=== PATIENT | male | born 1955 | race Caucasian/White ===

== ENCOUNTER 2019-06-15 08:24 | Emergency (ER) | payer OTHER ==
[~2019-06-15] VITALS: Ht 193 cm; Wt 126.8 kg
[2019-06-15 08:49] LABS: BASO % 1 % (0-3); EOS % 1 % (0-3); HEMATOCRIT 49.2 % (39.0-53.0); HEMOGLOBIN 16.8 g/dL (13.0-17.5); LYMPH # 1.8 x10^3/uL (1.0-4.8); LYMPH % 27 % (24-48); MEAN CORPUSCULAR HEMOGLOBIN 31 pg (25-35); MEAN CORPUSCULAR HGB CONC 34 g/dL (31-37); MEAN CORPUSCULAR VOLUME 91 fL (79-100); MONO # 0.6 x10^3/uL (0.0-1.1); MONO % 9 % (0-9); NEUT # 4.2 x10^3uL (1.8-7.7); NEUT % 63 % (31-73); PLATELET COUNT 157 x10^3/uL (140-400); RED BLOOD COUNT 5.44 x10^6/uL (4.30-5.70); WHITE BLOOD COUNT 6.6 x10^3/uL (4.0-11.0)
[2019-06-15] MEDS ORDERED: FLEC100T PO (08:55)
[2019-06-15] MEDS ORDERED: METO-247 PO ×2 (08:55→11:00)
[2019-06-15] MEDS ORDERED: VITA1TAB31 PO (08:55)
[2019-06-15 08:58] LABS: CALCIUM 8.8 mg/dL (8.5-10.1); GFR 75.7; POTASSIUM 4.2 mmol/L (3.5-5.1)
[2019-06-15] MEDS ORDERED: dilTIAZem VIAL 125 MG in IV NORMAL SALINE 100ML 100 ML IV ONE (09:00)
[2019-06-15] MEDS ORDERED: IV NORMAL SALINE 1,000ML 1,000 ML IV ONE (09:00)
--- NOTE | 2019-06-15 09:04 | RAD ---
Single view chest dated 06/15/2019: No comparison available. Clinical Indication: Shortness of breath. Findings: Single upright portable exam of the chest was performed. Heart size and mediastinal contours are within normal limits given technique. The lungs are clear without evidence of focal consolidation. Vascular interstitium is within normal limits. Impression:: No acute radiographic abnormality. Electronically signed by: Deuce Bar MD (06/15/2019 9:01 AM) [facility] [place]
[2019-06-15 09:10] LABS: ALBUMIN/GLOBULIN RATIO 1.3 (1.0-1.7); TOTAL BILIRUBIN 0.4 mg/dL (0.2-1.0); TOTAL PROTEIN 7.1 g/dL (6.4-8.2)
[2019-06-15] MEDS ORDERED: FLECAINIDE 50 MG TABLET. PO ONE (11:00)
[2019-06-15] MEDS ORDERED: RIVA20TA2 PO (11:00)
--- NOTE | 2019-06-15 11:00 | PHYS DOC ---
Past History Past Medical History: A-Fib Past Surgical History: Tonsillectomy Alcohol Use: None Adult General Chief Complaint Chief Complaint: Palpitations HPI HPI Patient is a C4-year-old male with history of atrial fibrillation with ablation 2 who is currently maintained on flecainide and eyed 100 mg twice daily and 50 mg of metoprolol daily who presents with palpitations. Patient reports brief episode of heartburn last evening accompanied with palpitations. Heartburn has resolved. Patient denies chest pain, dizziness lightheadedness or other anginal equivalent has been in atrial fibrillation throughout the day. At triage, heart rate 130s, blood pressure stable. Denies missed medications, recent alcohol consumption, recent illness, increased leg pain or swelling or other precipitating factors. Patient relocated from [place] has not yet to establish with a local information systems audit manager. No history of CAD. He is not currently on anticoagulation therapy.[] Review of Systems Review of Systems Review of symtpoms as per history of present illness. All other review symptoms are negative. All other systems were reviewed and found to be within normal limits, except as documented in this note. Current Medications Current Medications Current Medications Medications (Trade) Dose Ordered Sig/Evens Start Time Stop Time Status Last Admin Dose Admin Diltiazem HCl 125 mg/Sodium Chloride 125 ml @ 5 mls/hr 1X ONCE 06/15/19 09:00 06/16/19 09:59 06/15/19 09:13 5 MLS/HR Flecainide Acetate (Tambocor) 150 mg 1X ONCE 06/15/19 11:00 06/15/19 11:01 Sodium Chloride 1,000 ml @ 1,000 mls/hr 1X ONCE 06/15/19 09:00 06/15/19 09:59 DC 06/15/19 08:56 1,000 MLS/HR Allergies Allergies Allergies Coded Allergies Type Severity Reaction Last Updated Verified Penicillins Allergy Mild rash 06/15/19 Yes Physical Exam Physical Exam Constitutional: Well developed, well nourished, no acute distress, non-toxic ap pearance. [] HENT: Normocephalic, atraumatic, bilateral external ears normal, oropharynx moist, nose normal. [] Eyes: PERRLA, EOMI, conjunctiva normal, no discharge. [] Neck: Normal range of motion, no tenderness, supple, no stridor. [] Cardiovascular:Heart rate regular rhythm, no murmur [] Lungs & Thorax: Bilateral breath sounds clear to auscultation [] Abdomen: Bowel sounds normal, soft, no tenderness. [] Skin: Warm, dry, no erythema, no rash. [] Back: No tenderness. [] Extremities: No tenderness, no edema. [] Neurologic: Alert and oriented X 3, normal motor function, normal sensory function, no focal deficits noted. [] Psychologic: Affect normal, judgement normal, mood normal. [] Current Patient Data Vital Signs Vital Signs Date Time Temp Pulse Resp B/P (MAP) Pulse Ox O2 Delivery O2 Flow Rate FiO2 06/15/19 08:53 116 16 112/84 (93) 96 Room Air 06/15/19 08:24 97.9 Lab Results Laboratory Tests Test 06/15/19 08:35 White Blood Count 6.6 x10^3/uL (4.0-11.0) Red Blood Count 5.44 x10^6/uL (4.30-5.70) Hemoglobin 16.8 g/dL (13.0-17.5) Hematocrit 49.2 % (39.0-53.0) Mean Corpuscular Volume 91 fL (79-100) Mean Corpuscular Hemoglobin 31 pg (25-35) Mean Corpuscular Hemoglobin Concent 34 g/dL (31-37) Red Cell Distribution Width 13.0 % (11.5-14.5) Platelet Count 157 x10^3/uL (140-400) Neutrophils (%) (Auto) 63 % (31-73) Lymphocytes (%) (Auto) 27 % (24-48) Monocytes (%) (Auto) 9 % (0-9) Eosinophils (%) (Auto) 1 % (0-3) Basophils (%) (Auto) 1 % (0-3) Neutrophils # (Auto) 4.2 x10^3uL (1.8-7.7) Lymphocytes # (Auto) 1.8 x10^3/uL (1.0-4.8) Monocytes # (Auto) 0.6 x10^3/uL (0.0-1.1) Eosinophils # (Auto) 0.0 x10^3/uL (0.0-0.7) Basophils # (Auto) 0.0 x10^3/uL (0.0-0.2) Sodium Level 142 mmol/L (136-145) Potassium Level 4.2 mmol/L (3.5-5.1) Chloride Level 104 mmol/L (98-107) Carbon Dioxide Level 31 mmol/L (21-32) Anion Gap 7 (6-14) Blood Urea Nitrogen 15 mg/dL (8-26) Creatinine 1.0 mg/dL (0.7-1.3) Estimated GFR (Cockcroft-Gault) 75.7 BUN/Creatinine Ratio 15 (6-20) Glucose Level 108 mg/dL (70-99) H Calcium Level 8.8 mg/dL (8.5-10.1) Total Bilirubin 0.4 mg/dL (0.2-1.0) Aspartate Amino Transferase (AST) 21 U/L (15-37) Alanine Aminotransferase (ALT) 39 U/L (16-63) Alkaline Phosphatase 64 U/L (46-116) Troponin I Quantitative < 0.017 ng/mL (0-0.055) UV-Zyy-G-Type Natriuretic Peptide 557 pg/mL (0-124) H Total Protein 7.1 g/dL (6.4-8.2) Albumin 4.0 g/dL (3.4-5.0) Albumin/Globulin Ratio 1.3 (1.0-1.7) EKG EKG [EKG: reviewed] Radiology/Procedures Radiology/Procedures CXR: AND[] Course & Med Decision Making Course & Med Decision Making Pertinent Labs and Imaging studies reviewed. (See chart for details) [IV fluids, Cardizem drip initiated. Heart rate improved. Blood pressure stable. Patient remains asymptomatic. Case reviewed in detail with Dr. Ballard body on- call for cardiology. Recommends one time extra dose of flecanide in the emergency department, Xarelto and close office follow up. Return precautions reviewed. Patient verbalizes understanding and agreement discharge instructions prior to departure.] Dragon Disclaimer Dragon Disclaimer This electronic medical record was generated, in whole or in part, using a voice recognition dictation system. Departure Departure: Impression: Primary Impression: A-fib Disposition: 01 HOME, SELF-CARE Condition: STABLE Referrals: PCP,NO (PCP) PENNY BETTS MD Patient Instructions: Atrial Fibrillation, [id number] Additional Instructions: Please start Xarelto and take as directed. Continue all home medications as currently prescribed. Contact information systems audit manager's office on Monday and schedule office appointment next week. Return to the ED if new or worsening symptoms. Scripts Rivaroxaban (XARELTO) 20 Mg Tablet 1 TAB PO DAILY for 30 Days, #30 TAB 0 Refills with food Prov: DEVIN FINCH DO 06/15/19 Metoprolol Succinate (METOPROLOL SUCCINATE ( XL )) 100 Mg Tab.er.24h 1 TAB PO DAILY, #30 TAB 5 Refills Prov: DEVIN FINCH DO 06/15/19 DEVIN FINCH DO Jun 15, 2019 11:00
[2019-06-15 11:04] VITALS: BP 123/72
--- NOTE | 2019-06-15 17:22 | EKG ---
[address] [address] Test Date: 2019-06-15 Test Time: 08:36:21 Pat Name: KYLIE CHARLES Department: Room: Gender: M [employer]: : [id number] Requested By: DEVIN FINCH Order Number: [id number] Reading MD: Franco Banegas MD Measurements Intervals Tinnie Rate: 123 P: MN: QRS: -14 QRSD: 96 T: 20 QT: 306 QTc: 443 Interpretive Statements ATRIAL FIBRILLATION WITH RVR NON-SPECIFIC ST/T CHANGES Electronically Signed On 06-17-2019 8:36:50 CDT by Franco Banegas MD
== END 2019-06-15 11:05 | disposition home or self-care (01) ==
LOC: ER 08:24
DX: I48.91 Unspecified atrial fibrillation (principal); I48.20 Chronic atrial fibrillation, unspecified; R00.2 Palpitations; R12 Heartburn; Z90.89 Acquired absence of other organs; Z88.0 Allergy status to penicillin
CPT/HCPCS: 36415; 71045; 80053; 83880; 84443; 84484; 85025; 93005; 96365; 96366; 99285; J3490; J7030